=== PATIENT | male | born 1960 | race Hispanic/Latino ===

== ENCOUNTER 2017-11-24 18:48 | Emergency (ER) | payer BC ==
[2017-11-24] MEDS ORDERED: DEXAMETHASONE SOD PHOSPHATE 10MG/ML 1ML VIAL ONE (19:41)
[2017-11-24] MEDS ORDERED: KETOROLAC TROMETHAMINE 60 MG/2 ML VIAL ONE (19:41)
== END 2017-11-24 20:08 | disposition home or self-care (01) ==
LOC: EDH 18:48
DX: M54.5 Low back pain (principal)
CPT/HCPCS: 96372 ×2; 99284; J1100; J1885